=== PATIENT | female | born 1985 | race Caucasian/White ===

== ENCOUNTER 2018-10-23 06:41 | Outpatient (CLI) | payer BC | END 2018-10-23 23:59 | disposition home or self-care (01) | LOC: RAD 06:41 | PROVIDERS: ATTEND Physician Assistant | DX: R19.4 Change in bowel habit (principal); R19.7 Diarrhea, unspecified | CPT/HCPCS: 74250 ==

== ENCOUNTER 2019-06-15 23:47 | Emergency (ER) | payer BC ==
[~2019-06-15] VITALS: Ht 167.6 cm; Wt 55.0 kg
[2019-06-15 23:48] VITALS: BP 104/74
[2019-06-16 00:39] LABS: BASOPHILS # (AUTO) 0.04 x10^3/uL (0-0.1); BASOPHILS % (AUTO) 1 % (0-1); EOSINOPHILS # (AUTO) 0.22 x10^3/uL (0-0.4); EOSINOPHILS % (AUTO) 3 % (1-7); LYMPHOCYTES # (AUTO) 1.12 x10^3/uL (1-3.4); LYMPHOCYTES % (AUTO) 17 % (22-44); MD NO; MEAN CORPUSCULAR HEMOGLOBIN 28.2 pg (27.0-34.8); MEAN CORPUSCULAR HGB CONC 33.3 g/dL (32.4-35.8); MEAN CORPUSCULAR VOLUME 84.7 fL (80-100); MEAN PLATELET VOLUME 10.8 fL (7.4-10.4); MONOCYTES % (AUTO) 8 % (2-9); NEUTROPHILS # (AUTO) 4.73 x10^3/uL (1.8-6.8); NEUTROPHILS % (AUTO) 72 % (42-75); PLATELET COUNT 192 x10^3/uL (130-400); RED BLOOD COUNT 4.84 x10^6/uL (3.82-5.3)
--- NOTE | 2019-06-16 00:39 | NUR ---
PT. TO ED WITH C/O RIGHT ABD PAIN X 5 DAYS, STATES THAT TONIGHT PAIN STARTED RADIATING TO RIGHT FLANK. DENIES URINARY SYMPTOMS. PT. AMBULATED TO BR WITH STEADY GAIT TO PROVIDE URINE SAMPLE.
[2019-06-16 00:44] LABS: MICROSCOPIC AUTO
[2019-06-16 00:45] LABS: CULTURE INDICATED? NO
[2019-06-16 00:46] LABS: ALANINE AMINOTRANSFERASE 17 U/L (12-78); ALBUMIN 3.6 g/dL (3.4-5.0); ANION GAP 6 mmol/L (5-15); CALCIUM 8.5 mg/dL (8.5-10.1); CHLORIDE 108 mmol/L (98-107); CREATININE 0.97 mg/dL (0.55-1.02)
[2019-06-16 00:51] LABS: ALKALINE PHOSPHATASE 43 U/L (45-117); BILIRUBIN,TOTAL 0.9 mg/dL (0.2-1.0); TOTAL PROTEIN 7.3 g/dL (6.4-8.2)
--- NOTE | 2019-06-16 01:18 | NUR ---
REPORT TO ALESSANDRA HERNANDEZ TO ASSUME CARE OF PT.
--- NOTE | 2019-06-16 01:43 | NUR ---
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 Pt then stated "If there's nothing else I'd like to be discharged".
== END 2019-06-16 02:05 | disposition home or self-care (01) ==
LOC: ED 06-16 02:00
DX: R10.11 Right upper quadrant pain (principal); R11.2 Nausea with vomiting, unspecified; J45.909 Unspecified asthma, uncomplicated; Z90.49 Acquired absence of other specified parts of digestive tract; Z90.710 Acquired absence of both cervix and uterus
CPT/HCPCS: 36415; 80053; 81001; 83690; 84703; 85025; 99283

== ENCOUNTER 2019-09-23 09:53 | Emergency (ER) | payer BC, OTHER ==
[~2019-09-23] VITALS: Ht 167.6 cm; Wt 52.4 kg
[2019-09-23 10:26] VITALS: BP 105/70
[2019-09-23] MEDS ORDERED: HYDROmorphone 1 MG/ML, 1ML INJ IVPush PRN (10:30)
[2019-09-23] MEDS ORDERED: HYDROmorphone 1 MG/ML, 1ML INJ ONE (10:36)
[2019-09-23] MEDS ORDERED: ONDANSETRON 2MG/ML, 2ML ONE (10:36)
--- NOTE | 2019-09-23 10:36 | NUR ---
ULTRASOUND DELAY-PATIENT CRYING/REFUSES SCAN BEFORE PAIN MEDS.
--- NOTE | 2019-09-23 10:51 | NUR ---
attempted iv placement x2, unsuccessfully. will look for another RN to place IV.
[2019-09-23] MEDS ORDERED: SODIUM CHLORIDE 0.9% 1,000ML IVBOLUS ONE (11:00)
[2019-09-23] MEDS ORDERED: ONDANSETRON 2MG/ML, 2ML IVPush ONE (11:00)
[2019-09-23 11:04] LABS: MICROSCOPIC INDICATED
--- NOTE | 2019-09-23 11:09 | NUR ---
LAB IN NOW TO DRAW BLOOD. ANOTHER RN ABLE TO GET IV. PT HAS BEEN MEDICATED FOR PAIN. US AWARE PT HAS BEEN MEDICATED.
--- NOTE | 2019-09-23 11:17 | NUR ---
PT RESTING CALMLY IN BED AT THIS TIME. PT GOING TO US NOW
[2019-09-23] MEDS ORDERED: SODIUM CHLORIDE FLUSH 10ML SYR IVF ONE (11:30)
[2019-09-23 11:35] LABS: ALBUMIN 3.9 g/dL (3.4-5.0); ANION GAP 11 mmol/L (5-15); CALCIUM 8.7 mg/dL (8.5-10.1); CHLORIDE 116 mmol/L (98-107)
--- NOTE | 2019-09-23 11:36 | NUR ---
PT BACK FROM US
[2019-09-23 11:37] LABS: BASOPHILS # (AUTO) 0.08 x10^3/uL (0-0.1); BASOPHILS % (AUTO) 1 % (0-1); EOSINOPHILS # (AUTO) 0.74 x10^3/uL (0-0.4); EOSINOPHILS % (AUTO) 5 % (1-7); LYMPHOCYTES # (AUTO) 1.58 x10^3/uL (1-3.4); LYMPHOCYTES % (AUTO) 11 % (22-44); MD NO; MEAN CORPUSCULAR HEMOGLOBIN 28.1 pg (27.0-34.8); MEAN CORPUSCULAR HGB CONC 32.1 g/dL (32.4-35.8); MEAN CORPUSCULAR VOLUME 87.5 fL (80-100); MEAN PLATELET VOLUME 11.1 fL (7.4-10.4); MONOCYTES # (AUTO) 0.58 x10^3/uL (0.2-0.8); MONOCYTES % (AUTO) 4 % (2-9); NEUTROPHILS # (AUTO) 12.04 x10^3/uL (1.8-6.8); NEUTROPHILS % (AUTO) 80 % (42-75); PLATELET COUNT 220 x10^3/uL (130-400); RED BLOOD COUNT 4.87 x10^6/uL (3.82-5.3)
[2019-09-23 11:41] LABS: ALANINE AMINOTRANSFERASE 17 U/L (12-78); ALKALINE PHOSPHATASE 35 U/L (45-117); BILIRUBIN,TOTAL 0.7 mg/dL (0.2-1.0); CREATININE 1.01 mg/dL (0.55-1.02); TOTAL PROTEIN 7.4 g/dL (6.4-8.2)
== END 2019-09-23 13:34 | disposition home or self-care (01) ==
LOC: ED 10:30
DX: N83.292 Other ovarian cyst, left side (principal); N83.291 Other ovarian cyst, right side; R30.0 Dysuria
CPT/HCPCS: 36415; 73030; 76830; 80053; 81001; 84703; 85025; 87086; 96361; 96374; 96375; 99285; J1170; J2405; J7030